=== PATIENT | male | born 1960 | race Caucasian/White ===

== ENCOUNTER 2017-03-06 10:25 | Inpatient (IN) | payer OTHER ==
[2017-03-06 10:32] VITALS: BMI 32.5
[2017-03-06 12:22] LABS: BILIRUBIN,URINE NEGATIVE (NEGATIVE); BLOOD/HEMOGLOBIN,URINE 1+ (NEGATIVE); GLUCOSE, URINE NEGATIVE (NEGATIVE); KETONES,URINE NEGATIVE (NEGATIVE); LEUKOCYTE ESTERASE ,URINE 1+ (NEGATIVE); NITRITES,URINE NEGATIVE (NEGATIVE); PROTEIN,URINE 2+ (NEGATIVE); UROBILINOGEN,URINE 2+ (NORMAL)
[2017-03-06 12:28] LABS: APPEARANCE,URINE CLEAR (CLEAR); BACTERIA,URINE NEGATIVE /HPF (NEGATIVE); COLOR,URINE YELLOW (YELLOW); MUCUS,URINE FEW /HPF (NEGATIVE); RBC,URINE 0-2 /HPF (NEGATIVE); SQUAMOUS EPITHELIAL CELL,UR NEGATIVE /HPF (NEGATIVE)
--- NOTE | 2017-03-06 12:38 | DR.ABDMALE ---
HPI - PCP Primary Care Physician: angelika - Complaint Chief Complaint:: lower abd pain x 3 weeks-denies vomiting-also c/o dysuria- also c/o constipation - Reviewed Nurses Notes Review: Yes - Mode of arrival Mode of Arrival: Ambulatory - Timing Onset of Chief Complaint: 02/12/17 PMH - PMH Past Medical History: Yes Past Medical History: Hypertension Past Medical History Comment: back pain Past Surgical History: No - Family History History of Family Medical Conditions: No - infectious screening In the last 2 months have you had wt loss of >10#?: NO Have you had fever, night sweats or hemotysis?: No Have you traveled outside the country in the last 6 months?: No Isolation: Standard PE - Vital Signs Vital Signs: Temp Pulse Resp BP Pulse Ox 03/06/17 10:26 97.8 F 69 16 153/76 99 ROR - Labs Reviewed Result Diagrams: 03/06/17 13:00 03/06/17 13:00 Laboratory: WBC 12.8 X10^3/uL (3.6-10.0) H 03/06/17 13:00 RBC 4.97 X10^6/uL (4.7-6.0) 03/06/17 13:00 Hgb 14.9 g/dL (13.5-18.0) 03/06/17 13:00 Hct 44.1 % (42.0-54.0) 03/06/17 13:00 MCV 88.7 fL (80.0-100.0) 03/06/17 13:00 MCH 30.1 pg (27.0-34.0) 03/06/17 13:00 MCHC 33.9 g/dL (33.0-35.0) 03/06/17 13:00 RDW 12.9 % (11.6-16.5) 03/06/17 13:00 Plt Count 335 X10^3/uL (150.0-450.0) 03/06/17 13:00 MPV 7.7 fL (7.4-11.0) 03/06/17 13:00 Neut % 77.1 % (42.0-75.0) H 03/06/17 13:00 Lymph % 16.5 % (21.0-51.0) L 03/06/17 13:00 [place] % 5.4 % (0.0-13.0) 03/06/17 13:00 Eos % 0.1 % (0.9-2.9) L 03/06/17 13:00 Baso % 0.9 % (0.2-1.0) 03/06/17 13:00 Neut # 9.9 x10^3/uL (2.2-4.8) H 03/06/17 13:00 Lymph # 2.1 X10^3/uL (1.3-2.9) 03/06/17 13:00 [place] # 0.7 x10^3/uL (0.3-0.8) 03/06/17 13:00 Eos # 0.0 x10^3/uL (0.0-0.2) 03/06/17 13:00 Baso # 0.1 X10^3/uL (0.0-0.1) 03/06/17 13:00 Absolute Nucleated RBC 0.0 /100WBC 03/06/17 13:00 Sodium 136 mmol/L (136-145) 03/06/17 13:00 Corrected Sodium TNP 03/06/17 13:00 Potassium 4.0 mmol/L (3.5-5.1) 03/06/17 13:00 Chloride 101 mmol/L (98-107) 03/06/17 13:00 Carbon Dioxide 23.1 mmol/L (21-32) 03/06/17 13:00 BUN 14 mg/dL (7-18) 03/06/17 13:00 Creatinine 1.26 mg/dL (0.70-1.30) 03/06/17 13:00 Est GFR (MDRD) Af Amer > 60 (>60) 03/06/17 13:00 Est GFR (MDRD) Non-Af > 60 (>60) 03/06/17 13:00 Glucose 101 mg/dL (65-99) H 03/06/17 13:00 Calcium 9.0 mg/dL (8.5-10.1) 03/06/17 13:00 Corrected Calcium 9.6 mg/dL (8.5-10.1) 03/06/17 13:00 Total Bilirubin 0.80 mg/dL (0.2-1.0) 03/06/17 13:00 AST 22 Units/L (15-37) 03/06/17 13:00 ALT 20 Units/L (12-78) 03/06/17 13:00 Alkaline Phosphatase 76 Units/L (46-116) 03/06/17 13:00 Total Protein 8.0 g/dL (6.4-8.2) 03/06/17 13:00 Albumin 3.3 g/dL (3.4-5.0) L 03/06/17 13:00 Globulin 4.7 g/dL (2.5-4.5) H 03/06/17 13:00 Albumin/Globulin Ratio 0.7 Ratio (1.1-2.1) L 03/06/17 13:00 Amylase 75 Units/L (25-115) 03/06/17 13:00 Lipase 110 Units/L (73-393) 03/06/17 13:00 Specimen Type Clean catch urine 03/06/17 12:05 Urine Color Yellow (YELLOW) 03/06/17 12:05 Urine Appearance Clear (CLEAR) 03/06/17 12:05 Urine pH 7.0 (5.0 - 8.0) 03/06/17 12:05 Ur Specific Radiant 1.005 (1.000-1.030) 03/06/17 12:05 Urine Protein 2+ (NEGATIVE) 03/06/17 12:05 Urine Glucose (UA) Negative (NEGATIVE) 03/06/17 12:05 Urine Ketones Negative (NEGATIVE) 03/06/17 12:05 Urine Occult Blood 1+ (NEGATIVE) 03/06/17 12:05 Urine Nitrite Negative (NEGATIVE) 03/06/17 12:05 Urine Bilirubin Negative (NEGATIVE) 03/06/17 12:05 Urine Urobilinogen 2+ (NORMAL) 03/06/17 12:05 Ur Leukocyte Esterase 1+ (NEGATIVE) 03/06/17 12:05 Urine RBC 0-2 /HPF (NEGATIVE) 03/06/17 12:05 Urine WBC 0-2 /HPF (NEGATIVE) 03/06/17 12:05 Ur Squamous Epith Cells Negative /HPF (NEGATIVE) 03/06/17 12:05 Urine Bacteria Negative /HPF (NEGATIVE) 03/06/17 12:05 Urine Mucus Few /HPF (NEGATIVE) 03/06/17 12:05 Ur Culture Indicated? No/not indicated 03/06/17 12:05 H. pylori IgG Antibody Positive (NEGATIVE) A 03/06/17 13:00 - Discharge Plan Condition: Stable - Follow ups/Referrals Follow ups/Referrals: WILEY VIRGEN [Primary Care Provider] - 3 days - Instructions
[2017-03-06 13:10] LABS: BASOPHILS # (AUTO) 0.1 X10^3/uL (0.0-0.1); BASOPHILS % (AUTO) 0.9 % (0.2-1.0); EOSINOPHILS % (AUTO) 0.1 % (0.9-2.9); HEMATOCRIT 44.1 % (42.0-54.0); HEMOGLOBIN 14.9 g/dL (13.5-18.0); LYMPHOCYTES # (AUTO) 2.1 X10^3/uL (1.3-2.9); LYMPHOCYTES % (AUTO) 16.5 % (21.0-51.0); MEAN CORPUSCULAR HEMOGLOBIN 30.1 pg (27.0-34.0); MEAN CORPUSCULAR HGB CONC 33.9 g/dL (33.0-35.0); MEAN CORPUSCULAR VOLUME 88.7 fL (80.0-100.0); MEAN PLATELET VOLUME 7.7 fL (7.4-11.0); MONOCYTES # (AUTO) 0.7 x10^3/uL (0.3-0.8); MONOCYTES % (AUTO) 5.4 % (0.0-13.0); NEUTROPHILS # (AUTO) 9.9 x10^3/uL (2.2-4.8); NEUTROPHILS % (AUTO) 77.1 % (42.0-75.0); PLATELET COUNT 335 X10^3/uL (150.0-450.0); RED BLOOD COUNT 4.97 X10^6/uL (4.7-6.0); RED CELL DISTRIBUTION WIDTH 12.9 % (11.6-16.5); WHITE BLOOD COUNT 12.8 X10^3/uL (3.6-10.0)
[2017-03-06 13:22] LABS: ALANINE AMINOTRANSFERASE 20 Units/L (12-78); ALBUMIN 3.3 g/dL (3.4-5.0); ALKALINE PHOSPHATASE 76 Units/L (46-116); AMYLASE 75 Units/L (25-115); ASPARTATE AMINO TRANSFERASE 22 Units/L (15-37); BLOOD UREA NITROGEN 14 mg/dL (7-18); CARBON DIOXIDE 23.1 mmol/L (21-32); CHLORIDE 101 mmol/L (98-107); COR CA(FOR HYPOALB) 9.6 mg/dL (8.5-10.1); CREATININE 1.26 mg/dL (0.70-1.30); LIPASE 110 Units/L (73-393); SODIUM 136 mmol/L (136-145); eGFR BLACK RACES > 60 (>60); eGFR NON BLACK RACES > 60 (>60)
[2017-03-06] MEDS ORDERED: TORADOL 30 MG VIAL IVP ONE (13:51)
[2017-03-06] MEDS ORDERED: PEPCID 20 MG IV PREMIX* 20 MG/50 ML BAG IV ONE ×2 (13:51→14:07)
--- NOTE | 2017-03-06 13:59 | CT ---
History: Left lower quadrant pain off and on for 1 year Study: CT abdomen and pelvis without contrast. Sagittal and coronal reformations were provided. Comparison: None Findings: The visualized lung bases are grossly clear. The liver and spleen and pancreas and adrenal glands and kidneys are unremarkable. The appendix is normal. The gallbladder is unremarkable. There i s diverticular disease of the left colon and sigmoid colon and there is stranding of fat planes about the distal sigmoid colon. There is no ascites or adenopathy or aneurysm. There is no small bowel dis tention. The urinary bladder is unremarkable. Impression: Sigmoid diverticulitis Reported By:
[2017-03-06] MEDS ORDERED: TORADOL 30 MG VIAL ONE (14:08)
[2017-03-06] MEDS: NS 1000 ML 1,000 ML IV SCH ×3 (14:26→23:19)
[2017-03-06] MEDS ORDERED: CIPRO IV 400 MG PREMIX* 400 MG/200 ML IV.SOLN. IV ONE ×2 (15:22→15:56)
[2017-03-06] MEDS ORDERED: FLAGYL IV PREMIX 500 MG BAG 500 MG/100 ML BAG IV ONE ×2 (15:22→15:56)
[2017-03-06] MEDS ORDERED: PEPCID 20 MG IV PREMIX* 20 MG/50 ML BAG IV PRN (16:42)
[2017-03-06] MEDS ORDERED: MORPHINE SULFATE INJ 2 MG INJ IVP PRN (16:42)
[2017-03-06] MEDS ORDERED: PHENERGAN INJ 25 MG IVP PRN (16:42)
[2017-03-06] MEDS ORDERED: ZOFRAN INJ 4 MG VIAL IVP PRN (16:42)
[2017-03-06 17:00] LABS: BASOPHILS # (AUTO) 0.1 X10^3/uL (0.0-0.1); BASOPHILS % (AUTO) 0.7 % (0.2-1.0); EOSINOPHILS % (AUTO) 0.2 % (0.9-2.9); HEMATOCRIT 47.7 % (42.0-54.0); HEMOGLOBIN 16.1 g/dL (13.5-18.0); LYMPHOCYTES # (AUTO) 2.4 X10^3/uL (1.3-2.9); LYMPHOCYTES % (AUTO) 20.5 % (21.0-51.0); MEAN CORPUSCULAR HEMOGLOBIN 30.3 pg (27.0-34.0); MEAN CORPUSCULAR HGB CONC 33.8 g/dL (33.0-35.0); MEAN CORPUSCULAR VOLUME 89.5 fL (80.0-100.0); MEAN PLATELET VOLUME 7.4 fL (7.4-11.0); MONOCYTES # (AUTO) 0.8 x10^3/uL (0.3-0.8); MONOCYTES % (AUTO) 6.7 % (0.0-13.0); NEUTROPHILS # (AUTO) 8.3 x10^3/uL (2.2-4.8); NEUTROPHILS % (AUTO) 71.9 % (42.0-75.0); PLATELET COUNT 341 X10^3/uL (150.0-450.0); RED BLOOD COUNT 5.33 X10^6/uL (4.7-6.0); RED CELL DISTRIBUTION WIDTH 12.5 % (11.6-16.5); WHITE BLOOD COUNT 11.6 X10^3/uL (3.6-10.0)
[2017-03-06] MEDS ORDERED: PROTONIX INJ 40 MG VIAL IVP ONE (17:07)
[2017-03-06 17:08] LABS: ALANINE AMINOTRANSFERASE 21 Units/L (12-78); ALBUMIN 3.3 g/dL (3.4-5.0); ALKALINE PHOSPHATASE 81 Units/L (46-116); ASPARTATE AMINO TRANSFERASE 20 Units/L (15-37); BLOOD UREA NITROGEN 14 mg/dL (7-18); CALCIUM 9.2 mg/dL (8.5-10.1); CARBON DIOXIDE 26.6 mmol/L (21-32); CHLORIDE 101 mmol/L (98-107); COR CA(FOR HYPOALB) 9.8 mg/dL (8.5-10.1); CREATININE 1.39 mg/dL (0.70-1.30); SODIUM 136 mmol/L (136-145); TOTAL PROTEIN 8.1 g/dL (6.4-8.2); eGFR BLACK RACES > 60 (>60); eGFR NON BLACK RACES 57 (>60)
[2017-03-07 06:01] LABS: ALANINE AMINOTRANSFERASE 18 Units/L (12-78); ALBUMIN 2.9 g/dL (3.4-5.0); ALKALINE PHOSPHATASE 70 Units/L (46-116); ASPARTATE AMINO TRANSFERASE 19 Units/L (15-37); BLOOD UREA NITROGEN 14 mg/dL (7-18); CALCIUM 8.5 mg/dL (8.5-10.1); CARBON DIOXIDE 23.3 mmol/L (21-32); CHLORIDE 105 mmol/L (98-107); COR CA(FOR HYPOALB) 9.4 mg/dL (8.5-10.1); CREATININE 1.35 mg/dL (0.70-1.30); SODIUM 139 mmol/L (136-145); TOTAL PROTEIN 7.2 g/dL (6.4-8.2); eGFR BLACK RACES > 60 (>60); eGFR NON BLACK RACES 59 (>60)
[2017-03-07 06:10] LABS: BASOPHILS # (AUTO) 0.1 X10^3/uL (0.0-0.1); BASOPHILS % (AUTO) 0.6 % (0.2-1.0); EOSINOPHILS # (AUTO) 0.1 x10^3/uL (0.0-0.2); EOSINOPHILS % (AUTO) 0.7 % (0.9-2.9); HEMATOCRIT 42.1 % (42.0-54.0); HEMOGLOBIN 14.5 g/dL (13.5-18.0); LYMPHOCYTES # (AUTO) 2.5 X10^3/uL (1.3-2.9); LYMPHOCYTES % (AUTO) 24.4 % (21.0-51.0); MEAN CORPUSCULAR HEMOGLOBIN 30.4 pg (27.0-34.0); MEAN CORPUSCULAR HGB CONC 34.3 g/dL (33.0-35.0); MEAN CORPUSCULAR VOLUME 88.5 fL (80.0-100.0); MEAN PLATELET VOLUME 7.9 fL (7.4-11.0); MONOCYTES % (AUTO) 9.7 % (0.0-13.0); NEUTROPHILS # (AUTO) 6.6 x10^3/uL (2.2-4.8); NEUTROPHILS % (AUTO) 64.6 % (42.0-75.0); PLATELET COUNT 304 X10^3/uL (150.0-450.0); RED BLOOD COUNT 4.76 X10^6/uL (4.7-6.0); RED CELL DISTRIBUTION WIDTH 12.7 % (11.6-16.5); WHITE BLOOD COUNT 10.3 X10^3/uL (3.6-10.0)
[2017-03-07] MEDS ORDERED: LOPRESSOR TAB 25 MG PO ONE (07:26)
[2017-03-07] MEDS: NORCO 10/325 TAB PO PRN (09:14)
[2017-03-07] MEDS: MILK OF MAGNESIA PO SCH ×2 (09:15→20:59)
[2017-03-07] MEDS: COLACE CAP 100 MG PO SCH ×2 (09:15→20:59)
[2017-03-07] MEDS ORDERED: NORCO 10/325 TAB PO PRN (11:43)
[2017-03-07] MEDS: LOPRESSOR TAB 50 MG PO SCH (13:39)
[2017-03-07] MEDS: NS 1000 ML 1,000 ML IV SCH ×3 (13:41→21:01)
[2017-03-07] MEDS: FLAGYL IV PREMIX 500 MG BAG 500 MG/100 ML BAG IV SCH ×2 (17:21→20:57)
[2017-03-07] MEDS: CIPRO IV 400 MG PREMIX* 400 MG/200 ML IV.SOLN. IV SCH ×2 (18:35→20:56)
[2017-03-08] MEDS: FLAGYL IV PREMIX 500 MG BAG 500 MG/100 ML BAG IV SCH ×2 (02:22→09:20)
[2017-03-08 06:10] LABS: BASOPHILS # (AUTO) 0.1 X10^3/uL (0.0-0.1); BASOPHILS % (AUTO) 0.5 % (0.2-1.0); EOSINOPHILS # (AUTO) 0.1 x10^3/uL (0.0-0.2); EOSINOPHILS % (AUTO) 0.6 % (0.9-2.9); HEMATOCRIT 41.6 % (42.0-54.0); LYMPHOCYTES # (AUTO) 2.5 X10^3/uL (1.3-2.9); MEAN CORPUSCULAR HEMOGLOBIN 29.8 pg (27.0-34.0); MEAN CORPUSCULAR HGB CONC 33.7 g/dL (33.0-35.0); MEAN CORPUSCULAR VOLUME 88.6 fL (80.0-100.0); MEAN PLATELET VOLUME 7.9 fL (7.4-11.0); MONOCYTES % (AUTO) 8.5 % (0.0-13.0); NEUTROPHILS # (AUTO) 8.3 x10^3/uL (2.2-4.8); NEUTROPHILS % (AUTO) 69.4 % (42.0-75.0); PLATELET COUNT 310 X10^3/uL (150.0-450.0); RED CELL DISTRIBUTION WIDTH 12.6 % (11.6-16.5); WHITE BLOOD COUNT 11.9 X10^3/uL (3.6-10.0)
[2017-03-08 06:45] LABS: ALANINE AMINOTRANSFERASE 20 Units/L (12-78); ALKALINE PHOSPHATASE 73 Units/L (46-116); ASPARTATE AMINO TRANSFERASE 18 Units/L (15-37); BLOOD UREA NITROGEN 11 mg/dL (7-18); CALCIUM 8.4 mg/dL (8.5-10.1); CARBON DIOXIDE 21.9 mmol/L (21-32); CHLORIDE 104 mmol/L (98-107); COR CA(FOR HYPOALB) 9.2 mg/dL (8.5-10.1); CREATININE 1.26 mg/dL (0.70-1.30); SODIUM 138 mmol/L (136-145); TOTAL PROTEIN 7.4 g/dL (6.4-8.2); eGFR BLACK RACES > 60 (>60); eGFR NON BLACK RACES > 60 (>60)
[2017-03-08] MEDS: NORCO 10/325 TAB PO PRN (07:17)
[2017-03-08 08:43] VITALS: BP 144/83
[2017-03-08] MEDS: MILK OF MAGNESIA PO SCH (09:20)
[2017-03-08] MEDS: LOPRESSOR TAB 50 MG PO SCH (09:20)
[2017-03-08] MEDS: CIPRO IV 400 MG PREMIX* 400 MG/200 ML IV.SOLN. IV SCH (09:20)
[2017-03-08] MEDS: NS 1000 ML 1,000 ML IV SCH (09:21)
--- NOTE | 2017-03-17 22:13 | DR.H&P ---
H&P - History & Physical for Day of: H&P Date: 03/06/17 - Chief Complaint Chief Complaint: ABD PAIN, DYSURIA - Allergies Allergies/Adverse Reactions: Allergies Allergy/AdvReac Type Severity Reaction Status Date / Time No Known Drug Allergies Allergy Verified 03/06/17 12:34 - History of Present Illness History of Present Illness: THE PATIENT IS A 56YO MALE WHO PRESENTED TO ED WITH COMPLAIN OF NAUSEA AND ABDOMINAL PAIN. PATIENT COMPLAINED OF DYSURIA WELL. - Past Medical History Past Medical History: Hypertension - Past Surgical History Surgical History: No History - Family History Family Medical History: Hypertension - Social History Does patient currently use any type of tobacco product: No Have you used tobacco products in the last 12 months: No Type of Tobacco Use: None Does any household member use tobacco: No Alcohol Use: None Drug Use: None - Medications Home Medications: Hydrocodone-Acet 10/325 mg [NORCO 10 MG/325 MG *] 1 tab PO DAILY 03/06/17 [ History Confirmed 03/06/17] Metoprolol Tartrate [LOPRESSOR 50 MG *] 1 tab PO DAILY 03/06/17 [History Confirmed 03/06/17] - Review of Systems Constitutional: Malaise Eyes: No Symptoms Reported ENT: No Symptoms Reported Respiratory: No Symptoms Reported Cardiovascular: No Symptoms Reported Gastrointestinal: Nausea, Abdominal Pain Genitourinary: Dysuria Musculoskeletal: No Symptoms Reported Skin: No Symptoms Reported Neurological: No Symptoms Reported - Physical Exam Vital Signs: Temperature 98.1 F Pulse Rate [Right Brachial] 67 Pulse Rate 69 Respiratory Rate 20 Blood Pressure [Right Arm] 144/83 Blood Pressure 153/76 O2 Sat by Pulse Oximetry 98 Oriented: Normal Eyes: Normal Ear: Normal Nose: Normal Throat: Normal Respiratory: Clear Throughout Cardiovascular: Normal : Dysuria Auscultation: Bowel Sounds: Normal Palpation: Normal Tenderness: LLQ Skin: Normal Musculoskeletal: Normal Psychiatric: Normal Mood Description: Calm Affect: Angry - Assessment/Plan (1) Sigmoid diverticulitis Status: Acute Plan: IV ANTIBIOTICS, PAIN MGMT. mONITOR LABS.
--- NOTE | 2017-03-17 22:14 | PCM.PROG ---
Progress Note - Progress Note for Day of Date: 03/07/17 - Subjective Subjective: CONTINUES TO HAVE LEFT SIDE ABD PAIN - Past Medical Family Social History Past Med/Fam/Surg Hx: No changes since H&P Allergies: Allergies No Known Drug Allergies Allergy (Verified 03/06/17 12:34) - Review of Systems ROS: No change since H&P - Vital Signs and I&O's Vital Signs: Temperature 98.1 F Pulse Rate [Right Brachial] 67 Pulse Rate 69 Respiratory Rate 20 Blood Pressure [Right Arm] 144/83 Blood Pressure 153/76 O2 Sat by Pulse Oximetry 98 - Physical Exam Oriented: Normal Eyes: Normal Ear: Normal Nose: Normal Throat: Normal Respiratory: Normal Cardiovascular: Normal : Dysuria Auscultation: Bowel Sounds: Normal Palpation: Normal Tenderness: LLQ Skin: Normal Musculoskeletal: Normal Psychiatric: Normal Mood Description: Calm Affect: Angry Speech Pattern: Clear, Appropriate - Laboratory and Diagnostics Result Diagrams: 03/08/17 05:10 03/08/17 05:10 Labs: Laboratory WBC 11.9 X10^3/uL (3.6-10.0) H 03/08/17 05:10 RBC 4.70 X10^6/uL (4.7-6.0) 03/08/17 05:10 Hgb 14.0 g/dL (13.5-18.0) 03/08/17 05:10 Hct 41.6 % (42.0-54.0) L 03/08/17 05:10 MCV 88.6 fL (80.0-100.0) 03/08/17 05:10 MCH 29.8 pg (27.0-34.0) 03/08/17 05:10 MCHC 33.7 g/dL (33.0-35.0) 03/08/17 05:10 RDW 12.6 % (11.6-16.5) 03/08/17 05:10 Plt Count 310 X10^3/uL (150.0-450.0) 03/08/17 05:10 MPV 7.9 fL (7.4-11.0) 03/08/17 05:10 Neut % 69.4 % (42.0-75.0) 03/08/17 05:10 Lymph % 21.0 % (21.0-51.0) 03/08/17 05:10 [place] % 8.5 % (0.0-13.0) 03/08/17 05:10 Eos % 0.6 % (0.9-2.9) L 03/08/17 05:10 Baso % 0.5 % (0.2-1.0) 03/08/17 05:10 Neut # 8.3 x10^3/uL (2.2-4.8) H 03/08/17 05:10 Lymph # 2.5 X10^3/uL (1.3-2.9) 03/08/17 05:10 [place] # 1.0 x10^3/uL (0.3-0.8) H 03/08/17 05:10 Eos # 0.1 x10^3/uL (0.0-0.2) 03/08/17 05:10 Baso # 0.1 X10^3/uL (0.0-0.1) 03/08/17 05:10 Absolute Nucleated RBC 0.0 /100WBC 03/08/17 05:10 Sodium 138 mmol/L (136-145) 03/08/17 05:10 Corrected Sodium TNP 03/08/17 05:10 Potassium 3.9 mmol/L (3.5-5.1) 03/08/17 05:10 Chloride 104 mmol/L (98-107) 03/08/17 05:10 Carbon Dioxide 21.9 mmol/L (21-32) 03/08/17 05:10 BUN 11 mg/dL (7-18) 03/08/17 05:10 Creatinine 1.26 mg/dL (0.70-1.30) 03/08/17 05:10 Est GFR (MDRD) Af Amer > 60 (>60) 03/08/17 05:10 Est GFR (MDRD) Non-Af > 60 (>60) 03/08/17 05:10 Glucose 92 mg/dL (65-99) 03/08/17 05:10 Calcium 8.4 mg/dL (8.5-10.1) L 03/08/17 05:10 Corrected Calcium 9.2 mg/dL (8.5-10.1) 03/08/17 05:10 Total Bilirubin 0.80 mg/dL (0.2-1.0) 03/08/17 05:10 AST 18 Units/L (15-37) 03/08/17 05:10 ALT 20 Units/L (12-78) 03/08/17 05:10 Alkaline Phosphatase 73 Units/L (46-116) 03/08/17 05:10 Total Protein 7.4 g/dL (6.4-8.2) 03/08/17 05:10 Albumin 3.0 g/dL (3.4-5.0) L 03/08/17 05:10 Globulin 4.4 g/dL (2.5-4.5) 03/08/17 05:10 Albumin/Globulin Ratio 0.7 Ratio (1.1-2.1) L 03/08/17 05:10 Amylase 75 Units/L (25-115) 03/06/17 13:00 Lipase 110 Units/L (73-393) 03/06/17 13:00 Specimen Type Clean catch urine 03/06/17 12:05 Urine Color Yellow (YELLOW) 03/06/17 12:05 Urine Appearance Clear (CLEAR) 03/06/17 12:05 Urine pH 7.0 (5.0 - 8.0) 03/06/17 12:05 Ur Specific [place] 1.005 (1.000-1.030) 03/06/17 12:05 Urine Protein 2+ (NEGATIVE) 03/06/17 12:05 Urine Glucose (UA) Negative (NEGATIVE) 03/06/17 12:05 Urine Ketones Negative (NEGATIVE) 03/06/17 12:05 Urine Occult Blood 1+ (NEGATIVE) 03/06/17 12:05 Urine Nitrite Negative (NEGATIVE) 03/06/17 12:05 Urine Bilirubin Negative (NEGATIVE) 03/06/17 12:05 Urine Urobilinogen 2+ (NORMAL) 03/06/17 12:05 Ur Leukocyte Esterase 1+ (NEGATIVE) 03/06/17 12:05 Urine RBC 0-2 /HPF (NEGATIVE) 03/06/17 12:05 Urine WBC 0-2 /HPF (NEGATIVE) 03/06/17 12:05 Ur Squamous Epith Cells Negative /HPF (NEGATIVE) 03/06/17 12:05 Urine Bacteria Negative /HPF (NEGATIVE) 03/06/17 12:05 Urine Mucus Few /HPF (NEGATIVE) 03/06/17 12:05 Ur Culture Indicated? No/not indicated 03/06/17 12:05 H. pylori IgG Antibody Positive (NEGATIVE) A 03/06/17 13:00 - Plan (1) Sigmoid diverticulitis Status: Acute Plan: IV ANTIBIOTICS, PAIN MGMT. mONITOR LABS.
== END 2017-03-08 11:40 | disposition home or self-care (01) | DRG 392 ==
LOC: ER 10:42 → MED/SURG 17:00
PROVIDERS: ADMIT Internal Medicine; ATTEND Internal Medicine
DX: K57.92 Diverticulitis of intestine, part unspecified, without perforation or abscess without bleeding (principal); R10.84 Generalized abdominal pain; B96.81 Helicobacter pylori [H. pylori] as the cause of diseases classified elsewhere; I10 Essential (primary) hypertension
CPT/HCPCS: 36415; 74176; 80053; 81001; 82150; 83690; 85025; 86677; 96365; 96367; 96374; 96375; 99282; 99284; A4222; S0028; S0030; J0744; J1885; J2405

== ENCOUNTER → 2017-05-22 | Outpatient (CLI) | payer OTHER ==
--- NOTE | 2017-05-23 11:21 | MRI ---
MR lumbar spine without contrast Indication: Low back pain after old injury Technique: Multiplanar multi sequence imaging through the lumbar spine without contrast Findings: New review of bone marrow shows Modic endplate changes at L4-L5 and L5-S1 due to degenerati ve change. Disc bulges and disc desiccation are noted at these levels. Vertebral body heights are oth erwise normal. Bone marrow signal is slightly decreased, suggesting possible anemia. This the conus t erminates normally at the L2 pedicle level. Visualized abdominopelvic soft tissues show stranding in the pelvis there is accompanying STIR signal. The uterus appears absent, but underlying pelvic inflam matory process or ovarian pathology is possible. Ultrasound follow-up will be needed. T11-T12: No significant abnormality T12-L1: Minimal facet arthropathy without stenosis L1-L2: Minimal disc bulge and mild facet arthropathy without significant stenosis L2-L3: Minimal left paracentral and circumferential disc bulge and mild facet arthropathy causes no s ignificant stenosis L3-L4: Left paracentral disc bulge and circumferential disc bulge with moderate facet arthropathy cau ses mild spinal canal narrowing and no high-grade neural foramen narrowing. L4-L5: Circumferential disc bulge with central protrusion and moderate facet arthropathy causes mild spinal canal narrowing and minimal right neural foramen narrowing without high-grade stenosis. L5-S1: Circumferential disc bulge with right paracentral protrusion and moderate facet arthropathy ca uses minimal spinal canal narrowing. There is mild moderate right neural foramen narrowing and mild l eft neural foramen narrowing. The right lateral recess is mildly narrowed. Impression: 1. Multilevel disc degenerative change and facet arthropathy with mild spinal canal and neural forame n narrowing as noted above, worse on the right at L5-S1. 2. Stranding in the pelvis, tracking along the left psoas muscle and into the abdominal mesenteries c ould reflect an inflammatory process or neoplastic process. Therefore, ultrasound follow-up is recomm ended. Reported By:
== END ==
LOC: RAD 13:56
PROVIDERS: ATTEND Nurse Practitioner Family
DX: M51.36 Other intervertebral disc degeneration, lumbar region (principal)
CPT/HCPCS: 72148